=== PATIENT | male | born 1965 | race Two or more races ===

== ENCOUNTER 2018-05-16 07:18 | Day surgery (SDC) | payer OTHER ==
[~2018-05-16] VITALS: Ht 170.2 cm; Wt 75.7 kg
[2018-05-16] VITALS (10 sets, daily range): BP systolic 104–126; BP diastolic 60–76
--- NOTE | 2018-05-16 06:25 | Anethesia Preoperative Eval ---
Anesthesia Pre-op PMH/ROS General Date of Evaluation: May 16, 2018 Time of Evaluation: 06:24 Anesthesiologist: kiesha ASA Score: ASA 2 Mallampati Score Class I : Soft palate, uvula, fauces, pillars visible Class II: Soft palate, uvula, fauces visible Class III: Soft palate, base of uvula visible Class IV: Only hard plate visible Mallampati Classification: Class II Surgeon: rayne Diagnosis: gerd Surgical Procedure: egd Anesthesia History: none Family History: no anesthesia problems Allergies: Coded Allergies: No Known Allergies (Unverified , 05/16/18) Medications: see eMAR Past Medical History Cardiovascular: Reports: other - hypercholesterolemia Anesthesia Pre-op Phys. Exam Physician Exam Last Vital Signs Date Time Temp Pulse Resp B/P (MAP) Pulse Ox O2 Delivery O2 Flow Rate FiO2 05/16/18 07:42 Room Air 05/16/18 07:35 97.5 64 18 110/76 (87) 99 97.5 Constitutional: NAD Neurologic: CN 2-12 intact Cardiovascular: RRR Respiratory: CTA Gastrointestinal: S/NT/ND Airway Exam Mallampati Score: Class II MO: full Neck: supple TMD: 2fb ROM: full Teeth: broken Anesthesia Pre-op A/P Risk Assessment & Plan Assessment: asa2 Plan: mac Status Change Before Surgery: No Pre-Antibiotics Drug: Asya Chairez MD May 16, 2018 06:24
[2018-05-16] MEDS ORDERED: NKM (07:44)
--- NOTE | 2018-05-16 07:45 | Short Stay Surgery H&P ---
History of Present Illness History of Present Illness Chief Complaint Abdominal pains and GERDs HPI Phill Downey is a 53 year old male who was admitted on for GERDS/ Abdominal pains Patient History Allergies: Coded Allergies: No Known Allergies (Unverified , 05/16/18) Review of Systems Cardiovascular: Reports: no symptoms Respiratory: Reports: no symptoms Skeletal: Reports: trauma Gastrointestinal: Reports: no symptoms Genitourinary: Reports: no symptoms Neurologic: Reports: no symptoms Endocrine: Reports: no symptoms Hematologic: Reports: no symptoms Physical Exam Vital Signs Last Vital Signs Date Time Temp Pulse Resp B/P (MAP) Pulse Ox O2 Delivery O2 Flow Rate FiO2 05/16/18 07:42 Room Air 05/16/18 07:35 97.5 64 18 110/76 (87) 99 97.5 Skin: normal HENT: normal Heart: normal Lungs: normal Abdomen: abnormal Extremities: normal Genitourinary: normal Plan Plan of Care Upper GI endoscopy and biopsy Preop Interventions None. Summary of Findings See the reports. Attestation Are the patient's medical conditions optimized for surgery? Attestation Response: yes Rosie Harrison MD May 16, 2018 07:45
--- NOTE | 2018-05-16 07:46 | Pre-Procedure Note/Attestation ---
Pre-Procedure Note/Attestation Complete Prior to Procedure Planned Procedure: left Procedure Narrative: Examination of the upper GI tract via endoscopy Indications for Procedure Pre-Operative Diagnosis: R/O peptic ulcer/gastritis. Attestation I attest that I discussed the nature of the procedure; its benefits; risks and complications; and alternatives (and the risks and benefits of such alternatives ), prior to the procedure, with the patient (or the patient's legal ocean import representative). I attest that, if there was a reasonable possibility of needing a blood transfusion, the patient (or the patient's legal ocean import representative) was given the [facility] standardized written summary, pursuant to the Derick Gonzalo Blood Safety Act ([place] Health and Safety Code # 1645, as amended). I attest that I re-evaluated the patient just prior to the surgery and that there has been no change in the patient's H&P, except as documented below: Rosie Harrison MD May 16, 2018 07:46
[2018-05-16] MEDS ORDERED: LR 1000ml ONE (08:00)
[2018-05-16] MEDS ORDERED: Lidocaine 1% MPF 10mg/ml 5ml ONE (08:00)
[2018-05-16] MEDS ORDERED: Propofol 200mg/20ml IV ONE (08:00)
--- NOTE | 2018-05-16 08:05 | Discharge Instructions ---
Discharge Instructions Discharge Instructions Follow up with: See the doctor in office after 2 weeks For Congestive Heart Failure Reminder Report to your physician any weight gain of 5 pounds or more in one week. Rosie Harrison MD May 16, 2018 08:05
--- NOTE | 2018-05-16 08:14 | Endoscopy Procedure Note ---
Endoscopy Procedure Note General Indication for Procedure: Abdominal pains/Gerds Procedures Performed: EGD - Mild generalized gastritis otherwise normal UGI endoscopy. Biopsy obtained per random from gastric body. Specimen: yes Pt Tolerated Procedure Well: Yes Estimated Blood Loss: none Anesthesia Anesthesiologist: Dr. Navarrete Anesthesia: moderate sedation Medications Medication Given: see anesthesia record Inserted Devices Implant(s) used?: No Quality Quality of Bowel Preparation: Excellent GI Core Measures 50 yrs or older w/o bx or poly: Not Applicable 10yrs. F/U not recommended: Not Applicable If not recommended, why?: Med reason:<3 yrs.: System Reason:<3 yrs.: Rosie Harrison MD May 16, 2018 08:14
--- NOTE | 2018-05-16 08:30 | Immediate Post-Op Evaluation ---
Immediate Post-Op Evalulation Immediate Post-Op Evalulation Procedure: egd w/bx Date of Evaluation: May 16, 2018 Time of Evaluation: 08:29 IV Fluids: 150ml lr Blood Products: none Estimated Blood Loss: neglgigble Blood Pressure Systolic: 105 Blood Pressure Diastolic: 63 Pulse Rate: 63 Respiratory Rate: 18 O2 Sat by Pulse Oximetry: 100 Temperature (Fahrenheit): 97.5 Pain Score (1-10): 0 Nausea: No Vomiting: No Complications none Patient Status: awake, reacts, patent Hydration Status: adequate Drug: Asya Chairez MD May 16, 2018 08:30
[2018-05-16] MEDS ORDERED: LR 1000ml 1,000 ML IVLG SCH (08:44)
[2018-05-16] MEDS ORDERED: DiphenhydrAMINE 50mg/ml Inj IVP PRN (08:45)
[2018-05-16] MEDS ORDERED: Atropine Inj 1mg/10ml Syr IV PRN (08:45)
[2018-05-16] MEDS ORDERED: Labetalol 5mg/ml 20ml vial IV PRN (08:45)
[2018-05-16] MEDS ORDERED: fentaNYL 100 mcg/2 mL IV PRN (08:45)
[2018-05-16] MEDS ORDERED: Midazolam 2mg/2ml Inj IVP PRN (08:45)
--- NOTE | 2018-05-16 12:34 | 48 Hour Post Anesthesia Eval ---
Post Anesthesia Evaluation Procedure: egd w/bx Date of Evaluation: May 16, 2018 Time of Evaluation: 08:31 Blood Pressure Systolic: 104 0: 60 Pulse Rate: 60 Respiratory Rate: 18 Temperature (Fahrenheit): 97.5 O2 Sat by Pulse Oximetry: 99 Airway: patent Nausea: No Vomiting: No Pain Intensity: 0 Hydration Status: adequate Cardiopulmonary Status: stable Mental Status/LOC: patient returned to baseline Post-Anesthesia Complications: none Follow-up care needed: N/A Asya Goss MD May 16, 2018 12:34
--- NOTE | 2018-05-16 17:30 | Operative Note - Dictated ---
DATE OF OPERATION: 05/16/2018 SURGEON: Esophagogastroduodenoscopy with biopsy. PREOPERATIVE DIAGNOSIS: Abdominal pain, rule out peptic ulcer disease and gastritis. POSTOPERATIVE DIAGNOSIS: Mild generalized gastritis, otherwise normal upper GI endoscopy. Biopsy was taken per random from gastric body. MEDICATION USED: Per Dr. Navarrete, anesthesiologist. INSTRUMENT: GIF Olympus upper GI video endoscope. DESCRIPTION OF PROCEDURE: The patient after arriving endoscopy unit, was told about risks and benefits of the procedure, which he accepted signed informed consent. He was then put on the left lateral decubitus position. After adequate IV sedation, the scope was gently passed through the cricopharyngeal area, was lodged into the upper esophagus, and gradually advanced towards gastroesophageal junction. The entire length of the esophagus looked normal. No evidence of inflammatory process, ulceration, exudate, etc. was seen. GE junction also looked quite normal without any evidence of hiatal hernia or Michaels's. At this time, the scope was advanced into the stomach, gastric cavity was distended with insufflation of air. It is gradually the area areas of the fundus and the body and the antrum of the stomach were examined, which revealed evidence of mild inflammatory process presenting with mild erythema over the gastric mucosa, all over the stomach, however, there was no ulcers, tumors, polyps, bleeding sites, etc. A retroflexion maneuver was applied and the area of the gastroesophageal junction was examined in a closer fashion, which revealed no other abnormal findings. At this point, one random biopsy from gastric body was obtained and the scope was gradually advanced towards the pylorus. First and second portion of duodenum were found to be completely normal. Finally, the scope was pulled out and the procedure was terminated. The patient tolerated the procedure well and left the endoscopy room in good condition. Said Danielle Harrison DR: KVNG JOB#: [id number] CC:
--- NOTE | 2018-05-16 17:30 | Pre-op HX & Phy Repo 2 SIG ---
DATE OF ADMISSION: 05/16/2018 HISTORY OF PRESENT ILLNESS: The patient is a 53-year-old [id number] gentleman who is being seen prior to undergoing the procedure of upper GI endoscopy for which he has been scheduled and authorized to receive for evaluation of his gastrointestinal symptoms that he has suffered subsequent to his work injury. The patient has been experiencing pain and discomfort over the upper and lower part of the abdomen, but most significantly over the epigastric area, which occasionally radiates toward his chest. He reports that he experiences the symptoms subsequent to eating foods. The applicant does have history of taking significant amount of numbers of anti-inflammatory agents such as ibuprofen, Advil and Motrin etc. subsequent to his work injury. He also does complain of heartburn, which is mild for which he has been treated with omeprazole and antacids, but it is not completely controlled. The applicant also reports that he wakes up during the night with feeling pressure over his chest. He denies having difficulty swallowing. The applicant denies any history of hematemesis, melena or hematochezia. The applicant denies having a diarrhea or constipation. 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 PAST MEDICAL HISTORY: Nonsignificant. He denies having hypertension or diabetes, arthritis, or high cholesterol etc. PAST SURGICAL HISTORY: None. MEDICATIONS: List of present medications, none. ALLERGIES: Not significant. FAMILY HISTORY: Nonsignificant. REVIEW OF SYSTEMS: Basically, the patient denies having any other condition at this time. Denies chest pain or shortness of breath. Only complains of pain over the injured area over the lower back and does have GI symptoms as I mentioned above. PHYSICAL EXAMINATION: GENERAL: At this time reveals alert and oriented gentleman, does not seem to be in any acute distress. He looks well developed and nourished. VITAL SIGNS: All stable. HEENT: Normocephalic. Pupils equal in size and reactive to light and there was no evidence of jaundice. Buccal cavity, tongue midline, well hydrated. No ulcers. NECK: Supple. No JVD, thyromegaly, or adenopathy. CHEST: Clear to auscultation and percussion. No rales or rhonchi. HEART: S1 and S2 normal. Regular rhythm. No gallops or murmur. ABDOMEN: Soft, but there is area of tenderness over the upper part of the abdomen, but there is no organomegaly. No palpable mass. There was also some tenderness over the lower part of the abdomen as well. EXTREMITIES: No pretibial edema, cyanosis, or clubbing. CENTRAL NERVOUS SYSTEM: Grossly normal. PRELIMINARY PREOPERATIVE ENDOSCOPY IMPRESSION: 1. Abdominal pain of uncertain etiology, rule out NSAID-induced gastropathy, peptic ulcer disease, gastritis, esophagitis subsequent to usage of NSAIDs medications. 2. History of bodily injury, work-related. RECOMMENDATION: The applicant at this time seems to be stable to undergo the procedure for upper GI endoscopy for which he has been scheduled. He understands the risks and benefits and will sign the consent. Said Danielle Harrison DR: KVNG JOB#: [id number] CC:
== END 2018-05-16 10:40 | disposition home or self-care (01) ==
LOC: GAS 07:18
DX: K29.70 Gastritis, unspecified, without bleeding (principal); B96.81 Helicobacter pylori [H. pylori] as the cause of diseases classified elsewhere; K21.9 Gastro-esophageal reflux disease without esophagitis; E78.00 Pure hypercholesterolemia, unspecified
CPT/HCPCS: 43239; J2704; J7120; 94003; 94150